=== PATIENT | female | born 1940 | race Two or more races ===

== ENCOUNTER 2025-01-14 08:48 | Inpatient (IN) | payer OTHER ==
[~2025-01-14] VITALS: Ht 165.1 cm; Wt 68.0 kg
[2025-01-14 09:39] LABS: BASO % 0.4 % (0.1-1.2); EOS # 0.05 (0.04-0.54); EOS % 0.4 % (0.7-7.0); LYMPH # 2.84 (1.18-3.74); LYMPH % 25.0 % (19.3-53.1); MEAN PLATELET VOLUME 9.60 fl (9.4-12.4); MONO # 0.99 (0.24-0.82); MONO % 8.7 % (4.7-12.5); NEUT # 7.42 (1.56-6.13); NEUT % 65.2 % (34.0-71.1); RED CELL DISTRIBUTION WIDTH 13.8 % (11.6-14.4)
[2025-01-14] MEDS ORDERED: SALINE NOSE SPR45 ML (10:14)
[2025-01-14 10:19] LABS: BUN CREA RATIO 25.0 (7.0-25.0); CREATININE SERUM 0.77 mg/dL (0.55-1.02); GFR 71.08; GLUCOSE FASTING 125.0 mg/dL (65-100); OSMOLALITY SERUM 300.0 MOSM/KG (275-295)
[2025-01-14] MEDS ORDERED: 0.9 % SODIUM CHLORIDE 1,000 ML IV STA (12:55)
[2025-01-14 14:45] LABS: URINE APPEARANCE Cloudy; URINE BILIRRUBIN Negative (NEGATIVE); URINE BLOOD Negative; URINE COLOR Yellow; URINE GLUCOSE Negative (NEGATIVE); URINE KETONE Negative (NEGATIVE); URINE LEUKOCYTE Trace; URINE NITRATE Negative; URINE UROBILINOGEN 1.0 E.U./dl
[2025-01-14 14:46] LABS: URINE PROTEIN 100 (NEGATIVE)
[2025-01-14 14:47] LABS: URINE BACTERIA 7853.8 uL (0.0-1933); URINE RBC 5.1 uL (0.0-20.8); URINE WBC 155.2 uL (0.0-23.2)
[2025-01-14 14:55] LABS: TYPE CELLS SQUAMOUS; URINE CAST 0.14 uL (0.0-1.40); URINE EPITHELIAL CELLS > 201.7 uL (0.0-38.8)
[2025-01-14] MEDS ORDERED: SODIUM CHLORIDE 0.45 % 1,000 ML IV SCH (17:30)
[2025-01-14] MEDS ORDERED: IPRATROPIUM BROMIDE 0.5 MG/2.5 ML AMPUL.NEB IH SCH (17:35)
[2025-01-14] MEDS ORDERED: FAMOTIDINE/PF 20 MG in 0.9 % SODIUM CHLORIDE 8 ML IV PUSH SCH (17:36)
[2025-01-14] MEDS ORDERED: NIFEDIPINE 60 MG TAB.SA.OSM PO SCH (17:37)
[2025-01-14] MEDS ORDERED: CARVEDILOL 3.125 MG TABLET PO SCH (17:37)
[2025-01-14] MEDS ORDERED: hydrALAZINE HCL 20 MG VIAL IV PRN (17:45)
[2025-01-14] MEDS ORDERED: DEXTROSE 50 % IN WATER 0.5 G/ML DISP.SYRIN IV PRN (17:45)
[2025-01-14] MEDS ORDERED: INSULIN LISPRO 1,000 UNIT/10 ML UNITS SUBCUTANEO PRN (17:45)
[2025-01-14] MEDS ORDERED: ACETAMINOPHEN 500 MG GEL..CAP PO PRN (17:45)
[2025-01-14 20:46] LABS: INR 1.11
[2025-01-14 21:00] VITALS: BP 140/82; O2SAT 95
[2025-01-14 21:28] LABS: COVID-19 AG NEGATIVE (NEGATIVE)
[2025-01-15 01:18] VITALS: BP 149/78; O2SAT 98
[2025-01-15 08:30] VITALS: BP 129/76; O2SAT 94
[2025-01-15] MEDS ORDERED: INSULIN LISPRO 1,000 UNIT/10 ML UNITS SUBCUTANEO PRN (09:00)
[2025-01-15] MEDS ORDERED: CIPROFLOXACIN IN 5 % DEXTROSE 200 ML IV SCH (09:22)
[2025-01-15] MEDS ORDERED: BISACODYL 5 MG TABLET.EC PO STA (10:16)
[2025-01-15 10:50] LABS: ALT/SGPT 18.0 U/L (12-78); AST/SGOT 17.0 U/L (15-37); BILIRUBIN TOTAL 1.14 mg/dL (0.3-1.2); BUN CREA RATIO 26.0 (7.0-25.0); CREATININE SERUM 0.61 mg/dL (0.55-1.02); GFR 93.0; GLOBULINA 4.6 G/DL (2.4-3.5); GLUCOSE FASTING 105.0 mg/dL (65-100); OSMOLALITY SERUM 292.0 MOSM/KG (275-295); TSH 0.789 uIU/mL (0.358-3.74)
[2025-01-15 16:00] VITALS: BP 172/94; O2SAT 96
[2025-01-16 01:30] VITALS: BP 129/79; O2SAT 97
[2025-01-16 08:00] VITALS: BP 152/90; O2SAT 95
[2025-01-16] MEDS ORDERED: BISACODYL 5 MG TABLET.EC PO SCH (09:00)
[2025-01-16 10:47] LABS: ABG PH 7.471 (7.35-7.45); ABG PO2 63.3 mmHg (80-100); BICARBONATE 23.8 mmol/l (23-25)
[2025-01-16 10:48] LABS: o2 21 %
[2025-01-16 11:43] LABS: BASO % 0.4 % (0.1-1.2); EOS # 0.10 (0.04-0.54); EOS % 0.8 % (0.7-7.0); LYMPH # 2.63 (1.18-3.74); LYMPH % 20.6 % (19.3-53.1); MEAN PLATELET VOLUME 10.10 fl (9.4-12.4); MONO # 0.93 (0.24-0.82); MONO % 7.3 % (4.7-12.5); NEUT # 9.04 (1.56-6.13); NEUT % 70.7 % (34.0-71.1); RED CELL DISTRIBUTION WIDTH 13.2 % (11.6-14.4)
[2025-01-16 11:44] LABS: BUN CREA RATIO 18.0 (7.0-25.0); CREATININE SERUM 0.72 mg/dL (0.55-1.02); GFR 76.8; GLUCOSE FASTING 192.0 mg/dL (65-100); OSMOLALITY SERUM 287.0 MOSM/KG (275-295)
[2025-01-16 17:04] VITALS: BP 164/87; O2SAT 95
[2025-01-17] MEDS ORDERED: ENOXAPARIN SODIUM 40 MG/0.4 ML SYRINGE SUBCUTANEO SCH (09:00)
[2025-01-17 16:00] VITALS: BP 167/94; O2SAT 94
== END 2025-01-17 20:05 | disposition home or self-care (01) | DRG 690 ==
LOC: ER 08:48 → SURH 17:40
PROVIDERS: Emergency Medicine; General Practice; Internal Medicine; Internal Medicine Endocrinology, Diabetes & Metabolism; ADMIT Student in an Organized Health Care Education/Training Program; ATTEND Student in an Organized Health Care Education/Training Program
PROC: BW28ZZZ Computerized Tomography (CT Scan) of Head (ICD-10-PCS; principal; 2025-01-14)
PROC: BW21ZZZ Computerized Tomography (CT Scan) of Abdomen and Pelvis (ICD-10-PCS; 2025-01-14)
PROC: BW24ZZZ Computerized Tomography (CT Scan) of Chest and Abdomen (ICD-10-PCS; 2025-01-14)
PROC: B24BZZZ Ultrasonography of Heart with Aorta (ICD-10-PCS; 2025-01-14)
PROC: B345ZZZ Ultrasonography of Bilateral Common Carotid Arteries (ICD-10-PCS; 2025-01-14)
PROC: BW24YZZ Computerized Tomography (CT Scan) of Chest and Abdomen using Other Contrast (ICD-10-PCS; 2025-01-17)
DX: N39.0 Urinary tract infection, site not specified (principal); E87.0 Hyperosmolality and hypernatremia; F05 Delirium due to known physiological condition; E86.0 Dehydration; Z79.4 Long term (current) use of insulin; J44.9 Chronic obstructive pulmonary disease, unspecified; Z72.0 Tobacco use; E11.65 Type 2 diabetes mellitus with hyperglycemia; I51.7 Cardiomegaly; H40.89 Other specified glaucoma; R41.82 Altered mental status, unspecified; N76.0 Acute vaginitis; B96.89 Other specified bacterial agents as the cause of diseases classified elsewhere; F03.90 Unspecified dementia, unspecified severity, without behavioral disturbance, psychotic disturbance, mood disturbance, and anxiety; W13.3XXA Fall through floor, initial encounter; Y93.9 Activity, unspecified; Y92.9 Unspecified place or not applicable; M85.88 Other specified disorders of bone density and structure, other site